=== PATIENT | male | born 1960 | race Caucasian/White ===

== ENCOUNTER → 2019-10-14 | Outpatient (CLI) | payer BC ==
[2019-10-14 10:47] LABS: ABSOLUTE BASOPHILS 0.1 thou/uL (0.0-0.2); ABSOLUTE EOSINOPHILS 0.3 thou/uL (0.0-0.7); ABSOLUTE LYMPHOCYTES 1.6 thou/uL (0.8-5.3); ABSOLUTE MONOCYTES 0.6 thou/uL (0.0-1.2); ABSOLUTE NEUTROPHILS 5.8 thou/uL (1.6-8.1); BASOPHILS 0.7 %; EOSINOPHILS 3.2 %; HEMATOCRIT 46.7 % (42.0-52.0); HEMOGLOBIN 16.5 gm/dL (14.0-18.0); LYMPHOCYTES 19.2 %; MCH 31.6 pg (26.0-34.0); MCHC 35.2 g/dL (28.0-37.0); MCV 89.7 fL (80.0-100.0); NUCLEATED RBCS 0 /100WBC; PLATELET COUNT* 178 thou/uL (150-400); POLYS 69.9 %; RDW-CV 13.9 % (10.5-14.5); WBC 8.3 thou/uL (4.0-11.0)
[2019-10-14 11:05] LABS: ALBUMIN 3.8 g/dL (3.4-5.0); CREATININE 1.2 mg/dL (0.6-1.3); TOTAL BILIRUBIN 0.4 mg/dL (<0.1-1.0); TOTAL PROTEIN 7.6 g/dL (6.4-8.2)
== END ==
LOC: M.LAB 10:15
PROVIDERS: ATTEND Orthopaedic Surgery
DX: Z01.812 Encounter for preprocedural laboratory examination (principal); Z11.59 Encounter for screening for other viral diseases

== ENCOUNTER 2020-02-02 06:41 | Emergency (ER) | payer BC ==
[~2020-02-02] VITALS: Ht 185.4 cm; Wt 136.1 kg
[2020-02-02] MEDS ORDERED: SERTRALINE HCL100 MG PO (06:48)
[2020-02-02] MEDS ORDERED: NORVASC 2.5 MG2.5 M1 PO (06:49)
[2020-02-02] MEDS ORDERED: BARIATRIC MV-I1 EACH PO (06:49)
[2020-02-02] MEDS ORDERED: LISINOPRIL2.5 MG PO (06:49)
[2020-02-02] MEDS ORDERED: ALLOPURINOL 10100 M3 PO (06:49)
[2020-02-02] MEDS ORDERED: OMEPRAZOLE 20 M20 M1 PO (06:50)
[2020-02-02] MEDS ORDERED: ALLER-TEC D 5-1 EACH PO (06:50)
[2020-02-02] MEDS ORDERED: CALCIUM + VITA1 EACH PO (06:50)
[2020-02-02 08:42] VITALS: BP 149/92
== END 2020-02-02 08:30 | disposition home or self-care (01) ==
LOC: M.ERS 06:41
DX: S62.102A Fracture of unspecified carpal bone, left wrist, initial encounter for closed fracture (principal); I10 Essential (primary) hypertension; E78.00 Pure hypercholesterolemia, unspecified; M19.90 Unspecified osteoarthritis, unspecified site; Z79.899 Other long term (current) drug therapy; W17.89XA Other fall from one level to another, initial encounter; Y93.89 Activity, other specified; Y92.89 Other specified places as the place of occurrence of the external cause; Y99.8 Other external cause status

== ENCOUNTER → 2020-02-02 | Outpatient (CLI) | payer BC ==
[~2020-02-02] MED LIST: ALLER-TEC D 5-1 EACH PO; ALLOPURINOL 10100 M3 PO; BARIATRIC MV-I1 EACH PO; CALCIUM + VITA1 EACH PO; LISINOPRIL2.5 MG PO; NORVASC 2.5 MG2.5 M1 PO; OMEPRAZOLE 20 M20 M1 PO; SERTRALINE HCL100 MG PO
== END ==
LOC: M.LAB 11:09
PROVIDERS: ATTEND Orthopaedic Surgery
DX: Z01.812 Encounter for preprocedural laboratory examination (principal); Z20.828 Contact with and (suspected) exposure to other viral communicable diseases

== ENCOUNTER 2021-04-09 12:50 | Emergency (ER) | payer BC ==
[~2021-04-09] VITALS: Ht 185.4 cm; Wt 145.2 kg
[2021-04-09] MEDS ORDERED: FLEXERIL PO (13:02)
[2021-04-09] MEDS ORDERED: PREDNISONE 20 M20 M1 PO (14:11)
[2021-04-09] MEDS ORDERED: ZOFRAN ODT4 MG DISSOLVE (14:11)
[2021-04-09] MEDS ORDERED: PERCOCET PO (14:11)
[2021-04-09 14:29] VITALS: BP 145/75
== END 2021-04-09 14:29 | disposition home or self-care (01) ==
LOC: M.ERS 12:50
DX: M54.32 Sciatica, left side (principal); I10 Essential (primary) hypertension; M19.09 Primary osteoarthritis, other specified site; Z79.899 Other long term (current) drug therapy; Z91.048 Other nonmedicinal substance allergy status